=== PATIENT | male | born 1975 | race Caucasian/White ===

== ENCOUNTER 2016-07-16 19:58 | Inpatient (IN) | payer OTHER ==
[~2016-07-16] VITALS: Ht 162.6 cm; Wt 120.0 kg
[~2016-07-16 19:58] MED LIST: CARB200 PO; KLON2TAB PO; PRED20 PO
[2016-07-16 20:00] VITALS: BP 141/76; PULSE 107; RESP 16; TEMP 98.8; O2SAT 98
--- NOTE | 2016-07-16 20:31 | PD ---
Physical Exam Date Seen by Provider: Jul 16, 2016 Time Seen by Provider: 20:24 Narrative 40 YOWM C/O YEST R LOWER LEG PAIN AND REDNESS. POS BURNING SENSATION . USING HYDROCORTISONE. YEST HE FELT LIKE HE HAD THE FLU. NOT UTD. PMD ORTILANI. NO N/V /D, NO NUMBNESS OR TINGLING. VS REVIEWED. PT AWAITING BED PLACEMENT. Data Data Last Documented VS Vital Signs Date Time Temp Pulse Resp B/P Pulse Ox O2 Delivery O2 Flow Rate FiO2 07/16/16 20:00 98.8 107 16 141/[address] [facility] Medical Record Reviewed: Yes Supervised Visit with KAROLINA: Yes Sky Rodriguez Jul 16, 2016 20:31
[2016-07-16] MEDS ORDERED: KLON2TAB PO (20:42)
[2016-07-16] MEDS ORDERED: TEGR200T PO (20:42)
[2016-07-16 20:43] VITALS: BP 141/69; PULSE 110; RESP 18; O2SAT 95
[2016-07-16 20:44] VITALS: O2SAT 95
--- NOTE | 2016-07-16 20:51 | PD ---
HPI Chief Complaint: Skin Problem Time Seen by Provider: 20:38 Travel History International Travel<30 days: No Contact w/Intl Traveler<30days: No Traveled to known affect area: No History of Present Illness HPI The patient is a 40 year old male who presents to the [facility] emergency department with a history of febrile illness that began on Sunday evening. The patient reports that he had a subjective fever and chills. The patient denies having any associated cough, congestion, sore throat, vomiting, or diarrhea. He reports that through the week and he had have a diminished appetite, however he did drink some soup today. The patient reports that yesterday morning he noticed that he developed an area of redness along the right lower extremity. He reports that since then the area of redness has spread to the medial aspect of the right groin. He reports having tenderness at the site. He denies having any known injury. The patient reports that his past medical history is significant for a seizure disorder. He is followed by Dr. Harrison for this. The patient denies any headache, neck pain, chest pain, shortness of breath, abdominal pain, vomiting, diarrhea, urinary symptoms, or neurologic symptoms. PFSH Past Medical History Narrative Medical The patient's PMH is significant for a seizure disorder. Diminished Hearing: No Shingles: Yes Past Surgical History Narrative Surgical The patient's past surgical history is reportedly None. Surgical History: No Previous Surgery Social History Alcohol Use: No Tobacco Use: No Substance Use: No Allergies-Medications (Allergen,Severity, Reaction): Coded Allergies: Aspirin (Verified Allergy, Severe, 07/16/16) Reported Meds & Prescriptions Reported Meds & Active Scripts Active Reported Klonopin (Clonazepam) 2 Mg Tab 2 Mg PO TID Tegretol (Carbamazepine) 200 Mg Tab 200 Mg PO TID Review of Systems Except as stated in HPI: all other systems reviewed are Neg General / Constitutional: Positive: Fever, Chills Eyes: No: Visual changes HENT: No: Headaches Cardiovascular: No: Chest Pain or Discomfort Respiratory: No: Cough, Shortness of Breath Gastrointestinal: No: Nausea, Vomiting, Diarrhea, Abdominal Pain Genitourinary: No: Dysuria Musculoskeletal: Positive: Myalgias, Edema, Pain Skin: Positive Rash, Positive Change in Pigmentation Neurologic: No: Weakness Psychiatric: No: Depression Endocrine: No: Polydipsia Hematologic/Lymphatic: No: Easy Bruising Physical Exam Narrative General: The patient is well-developed well-nourished male in no acute distress. Head and Neck exam: Head is normocephalic atraumatic. Eyes: EOMI, pupils are equal round and reactive to light. Nose: Midline septum with pink mucous membranes Mouth: Dentition unremarkable. Moist mucus membranes. Posterior oropharynx is not erythematous. No tonsillar hypertrophy. Uvula midline. Airway patent. Neck: No palpable lymphadenopathy. No nuchal rigidity. No thyromegaly. Cardiovascular: Sinus tachycardia in the low 100s without murmurs, gallops, or rubs. No pulse deficit to the extremities on simultaneous auscultation and palpation of his radial artery. Lungs: Clear to auscultation bilaterally. No wheezes, rhonchi, or rales. Abdomen: Soft, without tenderness to palpation in all 4 quadrants of the abdomen. No guarding, rebound, or rigidity. Normal bowel sounds are audible. No tenderness on palpation of McBurney's point. Negative Thompson's sign. Extremities: No clubbing or cyanosis, however in the area of interest the right lower cavity the patient does have edema, warmth, tenderness on palpation overlying the skin over the right tibia and fibula. The patient has an area of redness that extends linearly of the medial aspect of the right thigh into the right groin. There is no lymphadenopathy palpated. 2+ pulses in all 4 extremities. The patient has less than 3 second capillary refill of the digits of that foot. Back: No spinous process tenderness to palpation. No costovertebral angle tenderness to palpation. Neurologic Exam: Grossly nonfocal. Data Data Last Documented VS Vital Signs Date Time Temp Pulse Resp B/P Pulse Ox O2 Delivery O2 Flow Rate FiO2 07/16/16 20:44 95 Room Air 07/16/16 20:43 110 18 141/69 07/16/16 20:00 98.8 Orders Electrocardiogram (07/16/16 20:39) Complete Blood Count With Diff (07/16/16 20:39) Comprehensive Metabolic Panel (07/16/16 20:39) Prothrombin Time / Inr (Pt) (07/16/16 20:39) Act Partial Throm Time (Ptt) (07/16/16 20:39) Blood Culture (07/16/16 20:39) C-Reactive Protein (Crp) (07/16/16 20:39) Magnesium (Mg) (07/16/16 20:39) Iv Access Insert/Monitor (07/16/16 20:39) Ecg Monitoring (07/16/16 20:39) Oximetry (07/16/16 20:39) Lactic Acid Sepsis Protocol (07/16/16 20:39) Us Leg Venous Doppler (07/16/16 20:39) Tibia/Fibula (Ap/Lat) (07/16/16 20:39) Carbamazepine (Tegretol) (07/16/16 20:51) Sodium Chlor 0.9% 1000 Ml Inj (Ns 1000 M (07/16/16 21:00) Piperacil-Tazo 3.375 Gm Premix (Zosyn 3. (07/16/16 21:00) Vancomycin Inj (Vancomycin Inj) (07/16/16 21:00) Sodium Chlor 0.9% 1000 Ml Inj (Ns 1000 M (07/16/16 22:30) Admit Order (Ed Use Only) (07/16/16 23:16) Labs Laboratory Tests Test 07/16/16 20:55 White Blood Count 12.1 TH/MM3 Red Blood Count 4.07 MIL/MM3 Hemoglobin 12.7 GM/DL Hematocrit 36.1 % Mean Corpuscular Volume 88.7 FL Mean Corpuscular Hemoglobin 31.2 PG Mean Corpuscular Hemoglobin 35.2 % Concent Red Cell Distribution Width 12.7 % Platelet Count 135 TH/MM3 Mean Platelet Volume 8.6 FL Neutrophils (%) (Auto) % Lymphocytes (%) (Auto) % Monocytes (%) (Auto) % Eosinophils (%) (Auto) % Basophils (%) (Auto) % Neutrophils # (Auto) TH/MM3 Lymphocytes # (Auto) TH/MM3 Monocytes # (Auto) TH/MM3 Eosinophils # (Auto) TH/MM3 Basophils # (Auto) TH/MM3 CBC Comment AUTO DIFF Differential Total Cells 100 Counted Neutrophils % (Manual) 66 % Band Neutrophils % 11 % Lymphocytes % 16 % Monocytes % 6 % Neutrophils # (Manual) 9.3 TH/MM3 Differential Comment FINAL DIFF MANUAL Blastocytes 1 % Platelet Estimate LOW Platelet Morphology Comment NORMAL Red Cell Morphology Comment NORMAL Prothrombin Time 11.4 SEC Prothromb Time International 1.0 RATIO Ratio Activated Partial 29.1 SEC Thromboplast Time Sodium Level 137 MEQ/L Potassium Level 3.7 MEQ/L Chloride Level 102 MEQ/L Carbon Dioxide Level 26.0 MEQ/L Anion Gap 9 MEQ/L Blood Urea Nitrogen 15 MG/DL Creatinine 0.95 MG/DL Estimat Glomerular Filtration 87 ML/MIN Rate Random Glucose 125 MG/DL Lactic Acid Level 2.3 mmol/L Calcium Level 8.5 MG/DL Magnesium Level 1.9 MG/DL Total Bilirubin 0.3 MG/DL Aspartate Amino Transf 19 U/L (AST/SGOT) Alanine Aminotransferase 21 U/L (ALT/SGPT) Alkaline Phosphatase 62 U/L C-Reactive Protein 17.00 MG/DL Total Protein 7.2 GM/DL Albumin 3.3 GM/DL Carbamazepine (Tegretol) Level 13.3 MCG/ML MDM Medical Decision Making Medical Screen Exam Complete: Yes Emergency Medical Condition: Yes Medical Record Reviewed: Yes Interpretation(s) Last Impressions Tibia/Fibula X-Ray 07/16/162038 Signed Impressions: Service Date/Time: Saturday, July 16, 2016 20:59 - CONCLUSION: Normal examination for a patient of this age. Sky Magaña MD Lower Extremity Ultrasound 07/16/162038 Signed Impressions: Service Date/Time: Saturday, July 16, 2016 21:10 - CONCLUSION: Normal examination. Sky Magaña MD Differential Diagnosis Cellulitis, versus lymphangitis, versus necrotizing fasciitis, versus DVT, versus sepsis Narrative Course During the course of the patients emergency department visit, the patients history, examination, and differential diagnosis were reviewed with the patient. The patient had IV access obtained and blood work sent for analysis. The patient was placed on a didactic instructor with oximetry and blood pressure monitoring. An x-ray of the right tib-fib was ordered, ultrasound of the right lower extremity was ordered. The patient had an EKG done on arrival. The patient's EKG shows a sinus rhythm, nonspecific T-wave abnormalities. Heart rate is 91, no acute ST segment elevation or depression is noted, T waves are flattened in lead 3 The patient was provided normal saline 1 L IV fluid bolus, Zosyn 3.375 g IV, vancomycin 1 g IV. The patients laboratory studies were reviewed and remarkable for white count of 12.1, hemoglobin 12.7, platelets 135 with 66 neutrophils, bands 11, lymphocytes 16, CMP is remarkable for a glucose of 125, C-reactive protein 17, initial lactate is 2.3 therefore the patient was given a second liter of normal saline IV fluids, PT PTT within normal limits, Tegretol level is elevated at 13.3, therefore the patient's Tegretol will be held. Radiology studies were reviewed and remarkable for tib-fib x-ray shows no acute abnormality. Right lower extremity ultrasound shows no evidence of DVT. The patients results were discussed with the patient, including the plan of care. I explained that further testing and/ or monitoring is indicated based on the patients history, examination, and/ or laboratory findings. Therefore, I recommended admission for additional evaluation. The patient expressed understanding and was agreeable with this plan. The patient was admitted to the hospital in stable condition and sent to a bed under the care of the [facility]. Sepsis Criteria SIRS Criteria (2 or more): Heart rate over 90, WBC > 58274, < 4000 or > 10% bands Sepsis Criteria (SIRS+source): Infect source susp/known Severe Sepsis (+one): Lactate >2 Criteria Outcome: Meets SIRS criteria, Meets sepsis criteria, Meets severe sepsis criteria Physician Communication Physician Communication The patient's case was discussed with Dr. Becerra who did agree to admit the patient to Dr. Lamb service. Diagnosis Primary Impression: Cellulitis of right leg Additional Impressions: Lymphangitis Sepsis Qualified Code: A41.9 - Sepsis, due to unspecified organism Admitting Information Admitting Physician Requests: Admit Carrie Madrigal MD Jul 16, 2016 20:51
[2016-07-16] MEDS ORDERED: VANCOMYCIN INJ 1,000 MG in SODIUM CHLOR 0.9% 250 ML INJ 250 ML IV ONE (21:00)
[2016-07-16] MEDS ORDERED: PIPERACIL-TAZO 3.375 GM PREMIX 50 ML IV ONE (21:00)
[2016-07-16] MEDS ORDERED: SODIUM CHLOR 0.9% 1000 ML INJ 1,000 ML IV ONE ×2 (21:00→22:30)
[2016-07-16 21:32] LABS: HEMATOCRIT 36.1 % (39.0-51.0); MEAN CELL VOLUME 88.7 FL (80.0-100.0); MEAN CORPUSCULAR HEMOGLOBIN 31.2 PG (27.0-34.0); MEAN CORPUSCULAR HGB CONC 35.2 % (32.0-36.0); PLATELET COUNT 135 TH/MM3 (150-450); RED BLOOD COUNT 4.07 MIL/MM3 (4.50-5.90); RED CELL DISTRIBUTION WIDTH 12.7 % (11.6-17.2); WHITE BLOOD COUNT 12.1 TH/MM3 (4.0-11.0)
[2016-07-16 21:34] LABS: HEMO FLAGS AUTO DIFF
--- NOTE | 2016-07-16 21:40 | RADRPT ---
EXAM DATE/TIME: 07/16/2016 20:59 [facility] COMPARISON: No previous studies available for comparison. INDICATIONS : Right leg swelling with redness MEDICAL HISTORY : None. SURGICAL HISTORY : None. ENCOUNTER: Initial ACUITY: 1 day PAIN SCORE: 0/10 LOCATION: Right Tibia FINDINGS: Two view examination of the right tibia demonstrates no evidence of fracture or dislocation. Bony mi neralization is normal. The soft tissue structures are intact. CONCLUSION: Normal examination for a patient of this age. Sky Magaña MD on July 16, 2016 at 21:38 Board Certified Radiologist. This report was verified electronically.
[2016-07-16 21:54] LABS: APTT (PATIENT) 29.1 SEC (24.3-30.1); PROTHROMBIN TIME - PATIENT 11.4 SEC (9.8-11.6)
--- NOTE | 2016-07-16 21:59 | RADRPT ---
EXAM DATE/TIME: 07/16/2016 21:10 [facility] COMPARISON: No previous studies available for comparison. INDICATIONS : Right leg redness and pain. MEDICAL HISTORY : Seizure. SURGICAL HISTORY : None. ENCOUNTER: Initial ACUITY: 1 day PAIN SCORE: 0/10 LOCATION: Right leg. TECHNIQUE: Venous ultrasound of the leg was performed from the inguinal ligament to the proximal calf. [employer]-grupo e, color Doppler and spectral tracing, compression and augmentation techniques were used. FINDINGS: There is normal compressibility of the deep venous system from the inguinal region to the proximal ca lf. No echogenic clot is seen in the lumen of the common femoral, femoral, popliteal, and posterior tibial veins. There is a normal response of the venous system to proximal and distal augmentation an d respiration. CONCLUSION: Normal examination. Sky Magaña MD on July 16, 2016 at 21:57 Board Certified Radiologist. This report was verified electronically.
[2016-07-16 22:40] LABS: BANDS 11 % (0-6); BLASTS 1 % (0-0); NEUTROPHIL # MANUAL DIFF 9.3 TH/MM3 (1.8-7.7); POLYS (SEG NEUTROPHILS) 66 % (16-70); WBC DIFF SAMPLE 100
[2016-07-16 22:42] LABS: PLATELET ESTIMATE SMEAR LOW (NORMAL); PLATELET MORPHOLOGY NORMAL (NORMAL)
[2016-07-16 22:43] LABS: SCAN/DIFF FINAL DIFF MANUAL
[2016-07-16 22:56] LABS: ALKALINE PHOSPHATASE 62 U/L (45-117); ALT (GPT) 21 U/L (12-78); ANION GAP 9 MEQ/L (5-15); AST (GOT) 19 U/L (15-37); BLOOD UREA NITROGEN 15 MG/DL (7-18); CHLORIDE 102 MEQ/L (98-107); GLOMERULAR FILTRATION RATE 87 ML/MIN (>89); MAGNESIUM 1.9 MG/DL (1.5-2.5); SODIUM (NA) 137 MEQ/L (136-145); TOTAL BILIRUBIN ADULT 0.3 MG/DL (0.2-1.0)
[2016-07-16 22:58] LABS: POTASSIUM 3.7 MEQ/L (3.5-5.1)
[2016-07-16 23:22] LABS: LACTIC ACID GHOST NOT REPORTABLE
[2016-07-16] MEDS ORDERED: ACETAMINOPHEN 325 MG TAB PO PRN (23:30)
[2016-07-16] MEDS ORDERED: Vancomycin Consult Pharmacy 1 EA OTHER SCH (23:30)
[2016-07-17] VITALS (8 sets, daily range): BP systolic 114–161; BP diastolic 56–91; PULSE 88–98; RESP 16–20; TEMP 96.5–99.9; O2SAT 93–99
[2016-07-17] MEDS: SODIUM CHLOR 0.9% 1000 ML INJ 1,000 ML IV SCH ×2 (01:28→16:50)
[2016-07-17] MEDS: PIPERACIL-TAZO 3.375 GM PREMIX 50 ML IV SCH ×4 (02:27→20:41)
[2016-07-17] MEDS: ACETAMINOPHEN 325 MG TAB PO PRN ×4 (03:23→20:40)
[2016-07-17] MEDS ORDERED: clonazePAM 1 MG TAB PO SCH (06:00)
[2016-07-17] MEDS: VANCOMYCIN INJ 1,500 MG in SODIUM CHLORID 0.9% 500 ML INJ 500 ML IV SCH ×2 (06:21→17:02)
[2016-07-17 07:19] LABS: BICARBONATE 21.1 MEQ/L (21.0-32.0)
[2016-07-17 07:57] LABS: AUTOMATED NEUTROPHIL # 7.7 TH/MM3 (1.8-7.7); BASOPHIL % 0.4 % (0.0-2.0); EOSINOPHIL # 0.1 TH/MM3 (0-0.4); EOSINOPHIL % 0.5 % (0.0-4.0); HEMATOCRIT 35.3 % (39.0-51.0); LYMPH % 16.2 % (9.0-44.0); LYMPHOCYTE # 1.7 TH/MM3 (1.0-4.8); MEAN CELL VOLUME 92.6 FL (80.0-100.0); MEAN CORPUSCULAR HEMOGLOBIN 31.2 PG (27.0-34.0); MEAN CORPUSCULAR HGB CONC 33.8 % (32.0-36.0); MONO % 9.8 % (0.0-8.0); NEUT % 73.1 % (16.0-70.0); PLATELET COUNT 113 TH/MM3 (150-450); RED BLOOD COUNT 3.82 MIL/MM3 (4.50-5.90); RED CELL DISTRIBUTION WIDTH 13.1 % (11.6-17.2); WHITE BLOOD COUNT 10.5 TH/MM3 (4.0-11.0)
[2016-07-17 08:35] LABS: HEMO FLAGS AUTO DIFF
[2016-07-17 08:38] LABS: BANDS 7 % (0-6); EOSINOPHILS 1 % (0-4); NEUTROPHIL # MANUAL DIFF 6.6 TH/MM3 (1.8-7.7); PLATELET ESTIMATE SMEAR LOW (NORMAL); PLATELET MORPHOLOGY NORMAL (NORMAL); POLYS (SEG NEUTROPHILS) 56 % (16-70); WBC DIFF SAMPLE 100
[2016-07-17 08:39] LABS: SCAN/DIFF FINAL DIFF MANUAL
[2016-07-17] MEDS ORDERED: carBAMazepine 200 MG TAB PO SCH (09:00)
[2016-07-17] MEDS ORDERED: TEGR200T PO (09:28)
--- NOTE | 2016-07-17 09:56 | HHI.HP ---
HPI Service [facility] Hospitalists Primary Care Physician Santiago Harrison M.D. Admission Diagnosis right leg cellulitis with lymphangitis Chief Complaint: RLE pain and redness Travel History International Travel<30 Days: No Contact w/Intl Traveler <30 Da: No Traveled to Known Affected Are: No History of Present Illness Mr. Landry is a 40 y/o male with seizure disorder who presented to the ED at [facility] with complaints of fevers and RLE erythema that began on the evening on 07/14. The patient reports that he has had subjective fever and chills and then noticed an area of redness along the right lower extremity which has spread to the medial aspect of the right groin. There is associated tenderness at the site. The patient denies having any associated cough, congestion, sore throat, vomiting, or diarrhea. He reports that through the week and he had have a diminished appetite. He denies having any known injury/trauma to the RLE. The patient denies any headache, neck pain, chest pain, shortness of breath, abdominal pain, vomiting, diarrhea, urinary symptoms, or neurologic symptoms. LE US was negative for DVT. Pt was given Vancomycin and Zosyn in the ED for cellulitis. Review of Systems Constitutional: COMPLAINS OF: Fever, Chills, Change in appetite Ears, nose, mouth, throat: DENIES: Hearing loss Respiratory: DENIES: Cough, Shortness of breath Cardiovascular: DENIES: Chest pain, Palpitations, Lower Extremity Edema Gastrointestinal: DENIES: Abdominal pain, Nausea, Vomiting Genitourinary: DENIES: Dysuria Musculoskeletal: DENIES: Back pain Integumentary: DENIES: Rash Hematologic/lymphatic: DENIES: Lymphadenopathy Neurologic: DENIES: Headache Psychiatric: DENIES: Confusion Past Family Social History Past Medical History Seizure disorder Past Surgical History None reported Reported Medications Klonopin (Clonazepam) 2 Mg Tab 2 Mg PO TID Tegretol (Carbamazepine) 200 Mg Tab 200 Mg PO TID Allergies: Coded Allergies: Aspirin (Verified Allergy, Severe, 07/16/16) Family History Noncontributory Social History Pt denies any alcohol, tobacco or illicit drug use Physical Exam Vital Signs Vital Signs Date Time Temp Pulse Resp B/P Pulse Ox O2 Delivery O2 Flow Rate FiO2 07/17/16 06:18 95 133/76 96 07/17/16 04:00 96.5 96 20 161/69 99 07/17/16 02:00 98.1 92 19 142/82 99 07/17/16 00:00 88 16 114/56 97 Room Air 07/16/16 20:44 95 Room Air 07/16/16 20:43 110 18 141/69 95 Room Air 07/16/16 20:00 98.8 107 16 141/76 98 Room Air Physical Exam GENERAL: This is a well-nourished, well-developed patient, in no apparent distress. SKIN: Erythema from the right ankle up the anterior right calf with streaking up the medial right thigh to the groin are, no lymphadenopathy noted. HEENT: Atraumatic. Normocephalic. No temporal or scalp tenderness. No scleral icterus. Airway patent. NECK: Trachea midline, supple, nontender. CARDIO: Regular. RESP: CTA bilaterally. No wheezes, rales, or rhonchi. ABD: +BS, soft, non-tender, nondistended. EXT: RLE edema and erythema NEURO: Awake and alert. Motor and sensory grossly within normal limits. Normal speech. Laboratory Laboratory Tests Test 07/16/16 07/16/16 07/17/16 20:55 23:45 06:13 White Blood Count 12.1 10.5 Red Blood Count 4.07 3.82 Hemoglobin 12.7 11.9 Hematocrit 36.1 35.3 Mean Corpuscular Volume 88.7 92.6 Mean Corpuscular Hemoglobin 31.2 31.2 Mean Corpuscular Hemoglobin 35.2 33.8 Concent Red Cell Distribution Width 12.7 13.1 Platelet Count 135 113 Mean Platelet Volume 8.6 8.7 Neutrophils (%) (Auto) 73.1 Lymphocytes (%) (Auto) 16.2 Monocytes (%) (Auto) 9.8 Eosinophils (%) (Auto) 0.5 Basophils (%) (Auto) 0.4 Neutrophils # (Auto) 7.7 Lymphocytes # (Auto) 1.7 Monocytes # (Auto) 1.0 Eosinophils # (Auto) 0.1 Basophils # (Auto) 0.0 CBC Comment AUTO DIFF AUTO DIFF Differential Total Cells 100 100 Counted Neutrophils % (Manual) 66 56 Band Neutrophils % 11 7 Lymphocytes % 16 29 Monocytes % 6 7 Neutrophils # (Manual) 9.3 6.6 Differential Comment FINAL DIFF FINAL DIFF MANUAL MANUAL Blastocytes 1 Platelet Estimate LOW LOW Platelet Morphology Comment NORMAL NORMAL Red Cell Morphology Comment NORMAL NORMAL Prothrombin Time 11.4 Prothromb Time International 1.0 Ratio Activated Partial 29.1 Thromboplast Time Sodium Level 137 140 Potassium Level 3.7 5.0 Chloride Level 102 108 Carbon Dioxide Level 26.0 21.1 Anion Gap 9 11 Blood Urea Nitrogen 15 11 Creatinine 0.95 0.71 Estimat Glomerular Filtration 87 122 Rate Random Glucose 125 101 Lactic Acid Level 2.3 0.8 Calcium Level 8.5 7.6 Magnesium Level 1.9 Total Bilirubin 0.3 Aspartate Amino Transf 19 (AST/SGOT) Alanine Aminotransferase 21 (ALT/SGPT) Alkaline Phosphatase 62 C-Reactive Protein 17.00 Total Protein 7.2 Albumin 3.3 Carbamazepine (Tegretol) Level 13.3 11.0 Eosinophils % 1 Hematology Comments Date/Time Procedure Status Source Growth 07/16/16 20:55 Aerobic Blood Culture Received Blood Peripheral Pending 07/16/16 20:55 Anaerobic Blood Culture Received Blood Peripheral Pending Result Diagram: 07/17/1613 07/17/16612 Imaging Last Impressions Tibia/Fibula X-Ray 07/16/162038 Signed Impressions: Service Date/Time: Saturday, July 16, 2016 20:59 - CONCLUSION: Normal examination for a patient of this age. Sky Magaña MD Lower Extremity Ultrasound 07/16/162038 Signed Impressions: Service Date/Time: Saturday, July 16, 2016 21:10 - CONCLUSION: Normal examination. Sky Magaña MD Septic Shock Reassessment Heart: Regular rate and rhythm Lungs: Clear Skin: Warm Assessment and Plan Problem List: (1) Cellulitis of right leg Status: Acute Plan: - Pt admitted with RLE cellulitis with noted lymphangitis/streaking x 4 days with subjective fevers and chills. - LE US was negative - Pt was started on Vancomycin and Zosyn in the ED and this was continued upon admission - Pt has been afebrile since admission. - CRP was 17.00 at admission. - Blood cultures drawn in the ED are pending. - Supportive care - DVT prophylaxis with Lovenox (2) Lymphangitis Status: Acute Plan: - See above. (3) Seizure disorder Status: Chronic Plan: - Pt takes Tegretol 200mg @ 0700 and 1300 and 400mg at 2200. - Pts Tegretol level was elevated at admission to 13.3 and the dose was changed to 200mg TID but the pt insisted that his dose be changed back he states that the last time his dose was changed he had a break through seizures which was in 1997. - Pt is also on Klonopin 2mg po TID @ 0700, 1300, 2200 which was resumed. Assessment and Plan Patient examined. Assessment and plan formulated with Beatriz Kemp PA-C. I agree with the above. Physician Certification 2 Midnight Certification Type: Admission for Inpatient Services Order for Inpatient Services The services are ordered in accordance with Medicare regulations or non- Medicare payer requirements, as applicable. In the case of services not specified as inpatient-only, they are appropriately provided as inpatient services in accordance with the 2-midnight benchmark. Estimated LOS (days): 3 3 days is the estimated time the patient will need to remain in the hospital, assuming treatment plan goals are met and no additional complications. Post-Hospital Plan: Not yet determined Beatriz Kemp Jul 17, 2016 09:56 Brayan Lamb DO Jul 22, 2016 13:33
[2016-07-17] MEDS ORDERED: ONDANSETRON HCL 4 MG/2 ML VIAL IV PRN (10:00)
[2016-07-17] MEDS: ENOXAPARIN SODIUM 40 MG/0.4 ML SYRINGE SQ SCH (12:30)
[2016-07-17] MEDS: clonazePAM 1 MG TAB PO SCH ×2 (12:30→20:39)
[2016-07-17] MEDS: carBAMazepine 200 MG TAB PO SCH ×2 (12:30→20:39)
--- NOTE | 2016-07-17 13:57 | EKG ---
Date Performed: 07/16/2016 Time Performed: 23:01:40 PTAGE: 40 years EKG: Sinus rhythm NONSPECIFIC T-WAVE ABNORMALITY BORDERLINE ECG NO PREVIOUS TRACING DOCTOR: Amy Hoffman Interpretating Date/Time 07/17/2016 13:56:16
[2016-07-17 16:48] LABS: HEMOGLOBIN A1b 0.9 %; HEMOGLOBIN Ao 85.6 %; HEMOGLOBIN LA1C 1.9 %; HEMOGLOBIN P3 5.3 %
[2016-07-18] VITALS: BP 121/64; PULSE 86; RESP 16; TEMP 98.7; O2SAT 97
[2016-07-18] MEDS: ACETAMINOPHEN 325 MG TAB PO PRN ×3 (02:28→19:55)
[2016-07-18] MEDS: PIPERACIL-TAZO 3.375 GM PREMIX 50 ML IV SCH ×4 (02:28→21:51)
[2016-07-18 04:00] VITALS: BP 124/77; PULSE 90; RESP 16; O2SAT 97
[2016-07-18] MEDS: SODIUM CHLOR 0.9% 1000 ML INJ 1,000 ML IV SCH ×2 (05:04→21:51)
[2016-07-18] MEDS: VANCOMYCIN INJ 1,500 MG in SODIUM CHLORID 0.9% 500 ML INJ 500 ML IV SCH ×2 (05:04→18:05)
[2016-07-18] MEDS: clonazePAM 1 MG TAB PO SCH ×3 (06:25→21:51)
[2016-07-18] MEDS: carBAMazepine 200 MG TAB PO SCH ×3 (06:26→21:50)
[2016-07-18 08:00] VITALS: BP 129/78; PULSE 88; RESP 20; TEMP 99; O2SAT 97
[2016-07-18] MEDS ORDERED: INFLUENZA VIRUS VACCINE (QUADRIVALENT) 0.5 ML SYR IM ONE (09:00)
--- NOTE | 2016-07-18 10:04 | HHI.PR ---
Subjective Remarks Pt without any new complaints. His leg is less swollen and the streaking has receded some from the thigh Afebrile Objective Vitals Vital Signs Date Time Temp Pulse Resp B/P Pulse Ox O2 Delivery O2 Flow Rate FiO2 07/18/16 08:00 99.0 88 20 129/78 97 07/18/16 04:00 90 16 124/77 97 07/18/16 00:00 98.7 86 16 121/64 97 07/17/16 20:00 98.5 95 16 123/75 98 07/17/16 18:02 16 07/17/16 16:48 99.9 95 16 128/72 97 07/17/16 12:00 98.9 95 20 150/88 98 07/17/16 07/17/16 07/18/16 14:59 22:59 06:59 Intake Total 720 ml 1794 ml 834 ml Balance 720 ml 1794 ml 834 ml Intake Oral 720 ml 240 ml IV Total 1794 ml 594 ml # Voids 6 1 # Bowel Movements 0 Result Diagram: 07/17/1613 07/17/16612 Other Results Laboratory Tests Test 07/16/16 07/16/16 07/17/16 20:55 23:45 06:13 White Blood Count 12.1 TH/MM3 10.5 TH/MM3 Red Blood Count 4.07 MIL/MM3 3.82 MIL/MM3 Hemoglobin 12.7 GM/DL 11.9 GM/DL Hematocrit 36.1 % 35.3 % Mean Corpuscular Volume 88.7 FL 92.6 FL Mean Corpuscular Hemoglobin 31.2 PG 31.2 PG Mean Corpuscular Hemoglobin 35.2 % 33.8 % Concent Red Cell Distribution Width 12.7 % 13.1 % Platelet Count 135 TH/MM3 113 TH/MM3 Mean Platelet Volume 8.6 FL 8.7 FL Neutrophils (%) (Auto) % 73.1 % Lymphocytes (%) (Auto) % 16.2 % Monocytes (%) (Auto) % 9.8 % Eosinophils (%) (Auto) % 0.5 % Basophils (%) (Auto) % 0.4 % Neutrophils # (Auto) TH/MM3 7.7 TH/MM3 Lymphocytes # (Auto) TH/MM3 1.7 TH/MM3 Monocytes # (Auto) TH/MM3 1.0 TH/MM3 Eosinophils # (Auto) TH/MM3 0.1 TH/MM3 Basophils # (Auto) TH/MM3 0.0 TH/MM3 CBC Comment AUTO DIFF AUTO DIFF Differential Total Cells 100 100 Counted Neutrophils % (Manual) 66 % 56 % Band Neutrophils % 11 % 7 % Lymphocytes % 16 % 29 % Monocytes % 6 % 7 % Neutrophils # (Manual) 9.3 TH/MM3 6.6 TH/MM3 Differential Comment FINAL DIFF FINAL DIFF MANUAL MANUAL Blastocytes 1 % Platelet Estimate LOW LOW Platelet Morphology Comment NORMAL NORMAL Red Cell Morphology Comment NORMAL NORMAL Prothrombin Time 11.4 SEC Prothromb Time International 1.0 RATIO Ratio Activated Partial 29.1 SEC Thromboplast Time Sodium Level 137 MEQ/L 140 MEQ/L Potassium Level 3.7 MEQ/L 5.0 MEQ/L Chloride Level 102 MEQ/L 108 MEQ/L Carbon Dioxide Level 26.0 MEQ/L 21.1 MEQ/L Anion Gap 9 MEQ/L 11 MEQ/L Blood Urea Nitrogen 15 MG/DL 11 MG/DL Creatinine 0.95 MG/DL 0.71 MG/DL Estimat Glomerular Filtration 87 ML/MIN 122 ML/MIN Rate Random Glucose 125 MG/DL 101 MG/DL Lactic Acid Level 2.3 mmol/L 0.8 mmol/L Calcium Level 8.5 MG/DL 7.6 MG/DL Magnesium Level 1.9 MG/DL Total Bilirubin 0.3 MG/DL Aspartate Amino Transf 19 U/L (AST/SGOT) Alanine Aminotransferase 21 U/L (ALT/SGPT) Alkaline Phosphatase 62 U/L C-Reactive Protein 17.00 MG/DL Total Protein 7.2 GM/DL Albumin 3.3 GM/DL Carbamazepine (Tegretol) Level 13.3 MCG/ML 11.0 MCG/ML Eosinophils % 1 % Hematology Comments Hemoglobin A1c 5.4 % Imaging Last Impressions Tibia/Fibula X-Ray 07/16/162038 Signed Impressions: Service Date/Time: Saturday, July 16, 2016 20:59 - CONCLUSION: Normal examination for a patient of this age. Sky Magaña MD Lower Extremity Ultrasound 07/16/162038 Signed Impressions: Service Date/Time: Saturday, July 16, 2016 21:10 - CONCLUSION: Normal examination. Sky Magaña MD Objective Remarks General: NAD, AAOx3 Skin: Erythema from the right ankle up the anterior right calf. Less streaking up the medial right thigh, no lymphadenopathy noted. Cardiac: Regular. Chest: CTA bilaterally. Abd: +BS, soft, non-tender, nondistended. Ext: RLE edema and erythema A/P Problem List: (1) Cellulitis of right leg Status: Acute Plan: - Pt admitted with RLE cellulitis with noted lymphangitis/streaking x 4 days with subjective fevers and chills. - LE US was negative - Cont. Vancomycin and Zosyn - Pt has been afebrile since admission. - CRP was 17.00 at admission. - Blood cultures with no growth to date - Supportive care - DVT prophylaxis with Lovenox (2) Lymphangitis Status: Acute Plan: - See above. (3) Seizure disorder Status: Chronic Plan: - Pt takes Tegretol 200mg @ 0700 and 1300 and 400mg at 2200. - Pts Tegretol level was elevated at admission to 13.3 and the dose was changed to 200mg TID but the pt insisted that his dose be changed back he states that the last time his dose was changed he had a break through seizures which was in 1997. - Pt is also on Klonopin 2mg po TID @ 0700, 1300, 2200 which was resumed. Beatriz Kemp Jul 18, 2016 10:04 Brayan Lamb DO Jul 22, 2016 13:34
[2016-07-18 11:09] LABS: AUTOMATED NEUTROPHIL # 7.2 TH/MM3 (1.8-7.7); BASOPHIL % 0.2 % (0.0-2.0); EOSINOPHIL # 0.1 TH/MM3 (0-0.4); EOSINOPHIL % 0.6 % (0.0-4.0); HEMATOCRIT 34.6 % (39.0-51.0); HEMO FLAGS DIFF FINAL; LYMPH % 15.5 % (9.0-44.0); LYMPHOCYTE # 1.5 TH/MM3 (1.0-4.8); MEAN CELL VOLUME 90.6 FL (80.0-100.0); MEAN CORPUSCULAR HEMOGLOBIN 30.7 PG (27.0-34.0); MEAN CORPUSCULAR HGB CONC 33.9 % (32.0-36.0); MONO % 6.7 % (0.0-8.0); PLATELET COUNT 160 TH/MM3 (150-450); RED BLOOD COUNT 3.81 MIL/MM3 (4.50-5.90); RED CELL DISTRIBUTION WIDTH 12.8 % (11.6-17.2); WHITE BLOOD COUNT 9.4 TH/MM3 (4.0-11.0)
[2016-07-18 11:36] LABS: BICARBONATE 25.7 MEQ/L (21.0-32.0); MAGNESIUM 1.9 MG/DL (1.5-2.5); POTASSIUM 3.4 MEQ/L (3.5-5.1)
[2016-07-18 12:00] VITALS: BP 124/75; PULSE 95; RESP 20; TEMP 98.7; O2SAT 97
[2016-07-18] MEDS: ENOXAPARIN SODIUM 40 MG/0.4 ML SYRINGE SQ SCH (12:49)
[2016-07-18 16:00] VITALS: BP 135/78; PULSE 90; RESP 20; TEMP 99.3; O2SAT 97
[2016-07-18] MEDS ORDERED: PHARMACY ORDERED LAB ONE (17:45)
[2016-07-18 20:00] VITALS: BP 139/78; PULSE 98; RESP 18; TEMP 99.1; O2SAT 97
[2016-07-18] MEDS: traMADol HCL 50 MG TAB PO PRN (22:57)
[2016-07-19] VITALS: BP 128/72; PULSE 94; RESP 18; TEMP 99.8; O2SAT 95
[2016-07-19] MEDS: SODIUM CHLOR 0.9% 1000 ML INJ 1,000 ML IV SCH ×2 (02:15→12:21)
[2016-07-19] MEDS: PIPERACIL-TAZO 3.375 GM PREMIX 50 ML IV SCH ×4 (03:13→22:06)
[2016-07-19 04:00] VITALS: BP 111/64; PULSE 86; RESP 16; TEMP 97.5; O2SAT 94
[2016-07-19] MEDS: clonazePAM 1 MG TAB PO SCH ×3 (06:12→22:06)
[2016-07-19] MEDS: VANCOMYCIN INJ 1,500 MG in SODIUM CHLORID 0.9% 500 ML INJ 500 ML IV SCH (06:12)
[2016-07-19] MEDS: carBAMazepine 200 MG TAB PO SCH ×3 (06:12→22:05)
[2016-07-19 07:42] LABS: AUTOMATED NEUTROPHIL # 4.7 TH/MM3 (1.8-7.7); BASOPHIL # 0.1 TH/MM3 (0-0.2); BASOPHIL % 0.7 % (0.0-2.0); EOSINOPHIL # 0.2 TH/MM3 (0-0.4); EOSINOPHIL % 2.1 % (0.0-4.0); HEMATOCRIT 32.9 % (39.0-51.0); HEMO FLAGS DIFF FINAL; LYMPHOCYTE # 1.9 TH/MM3 (1.0-4.8); MEAN CELL VOLUME 88.9 FL (80.0-100.0); MEAN CORPUSCULAR HEMOGLOBIN 30.6 PG (27.0-34.0); MEAN CORPUSCULAR HGB CONC 34.4 % (32.0-36.0); NEUT % 63.2 % (16.0-70.0); PLATELET COUNT 145 TH/MM3 (150-450); RED CELL DISTRIBUTION WIDTH 12.5 % (11.6-17.2); WHITE BLOOD COUNT 7.5 TH/MM3 (4.0-11.0)
[2016-07-19 07:50] VITALS: BP 141/75; PULSE 87; RESP 20; TEMP 97.9; O2SAT 94
[2016-07-19 08:16] LABS: BICARBONATE 29.5 MEQ/L (21.0-32.0); POTASSIUM 3.5 MEQ/L (3.5-5.1)
[2016-07-19] MEDS: traMADol HCL 50 MG TAB PO PRN ×2 (08:16→14:24)
--- NOTE | 2016-07-19 09:02 | HHI.PR ---
Subjective Remarks Pt without any new complaints. Denies any increased pain and pt is keeping the RLE elevated Objective Vitals Vital Signs Date Time Temp Pulse Resp B/P Pulse Ox O2 Delivery O2 Flow Rate FiO2 07/19/16 04:00 97.5 86 16 111/64 94 07/19/16 00:00 99.8 94 18 128/72 95 07/18/16 20:00 99.1 98 18 139/78 97 07/18/16 16:00 99.3 90 20 135/78 97 07/18/16 12:00 98.7 95 20 124/75 97 07/18/16 07/18/16 07/19/16 15:00 23:00 07:00 Intake Total 720 ml 1330 ml 1730 ml Balance 720 ml 1330 ml 1730 ml Intake Oral 720 ml 600 ml IV Total 730 ml 1730 ml # Voids 6 2 1 # Bowel Movements 1 Result Diagram: 07/19/16 0710 07/19/16 0710 Other Results Laboratory Tests Test 07/18/16 07/18/16 07/19/16 11:00 17:15 07:10 White Blood Count 9.4 TH/MM3 7.5 TH/MM3 Red Blood Count 3.81 MIL/MM3 3.70 MIL/MM3 Hemoglobin 11.7 GM/DL 11.3 GM/DL Hematocrit 34.6 % 32.9 % Mean Corpuscular Volume 90.6 FL 88.9 FL Mean Corpuscular Hemoglobin 30.7 PG 30.6 PG Mean Corpuscular Hemoglobin 33.9 % 34.4 % Concent Red Cell Distribution Width 12.8 % 12.5 % Platelet Count 160 TH/MM3 145 TH/MM3 Mean Platelet Volume 9.1 FL 8.3 FL Neutrophils (%) (Auto) 77.0 % 63.2 % Lymphocytes (%) (Auto) 15.5 % 25.0 % Monocytes (%) (Auto) 6.7 % 9.0 % Eosinophils (%) (Auto) 0.6 % 2.1 % Basophils (%) (Auto) 0.2 % 0.7 % Neutrophils # (Auto) 7.2 TH/MM3 4.7 TH/MM3 Lymphocytes # (Auto) 1.5 TH/MM3 1.9 TH/MM3 Monocytes # (Auto) 0.6 TH/MM3 0.7 TH/MM3 Eosinophils # (Auto) 0.1 TH/MM3 0.2 TH/MM3 Basophils # (Auto) 0.0 TH/MM3 0.1 TH/MM3 CBC Comment DIFF FINAL DIFF FINAL Differential Comment Sodium Level 138 MEQ/L 140 MEQ/L Potassium Level 3.4 MEQ/L 3.5 MEQ/L Chloride Level 104 MEQ/L 103 MEQ/L Carbon Dioxide Level 25.7 MEQ/L 29.5 MEQ/L Anion Gap 8 MEQ/L 8 MEQ/L Blood Urea Nitrogen 7 MG/DL 9 MG/DL Creatinine 0.76 MG/DL 0.77 MG/DL Estimat Glomerular Filtration 113 ML/MIN 111 ML/MIN Rate Random Glucose 183 MG/DL 108 MG/DL Calcium Level 8.4 MG/DL 8.5 MG/DL Magnesium Level 1.9 MG/DL 2.0 MG/DL Vancomycin Level Trough 7.3 MCG/ML Imaging Last Impressions Tibia/Fibula X-Ray 07/16/162038 Signed Impressions: Service Date/Time: Saturday, July 16, 2016 20:59 - CONCLUSION: Normal examination for a patient of this age. Sky Magaña MD Lower Extremity Ultrasound 07/16/162038 Signed Impressions: Service Date/Time: Saturday, July 16, 2016 21:10 - CONCLUSION: Normal examination. Sky Magaña MD Objective Remarks General: NAD, AAOx3 Skin: Less erythema from the right ankle up the anterior right calf. No streaking to the medial right thigh noted, no lymphadenopathy noted. Cardiac: Regular. Chest: CTA bilaterally. Abd: +BS, soft, non-tender, nondistended. Ext: RLE edema and erythema A/P Problem List: (1) Cellulitis of right leg Status: Acute Plan: - Pt admitted with RLE cellulitis with noted lymphangitis/streaking x 4 days with subjective fevers and chills. - This is improving - LE US was negative - Cont. Vancomycin and Zosyn - Pt has been afebrile since admission. - CRP was 17.00 at admission. - Blood cultures with no growth to date - Supportive care - DVT prophylaxis with Lovenox (2) Lymphangitis Status: Acute Plan: - See above. (3) Seizure disorder Status: Chronic Plan: - Pt takes Tegretol 200mg @ 0700 and 1300 and 400mg at 2200. - Pts Tegretol level was elevated at admission to 13.3 and the dose was changed to 200mg TID but the pt insisted that his dose be changed back he states that the last time his dose was changed he had a break through seizures which was in 1997. - Pt is also on Klonopin 2mg po TID @ 0700, 1300, 2200 which was resumed. Beatriz Kemp Jul 19, 2016 09:02 Brayan Lamb DO Jul 22, 2016 13:34
[2016-07-19 11:50] VITALS: BP 157/84; PULSE 86; RESP 20; TEMP 98.3; O2SAT 95
[2016-07-19] MEDS: ENOXAPARIN SODIUM 40 MG/0.4 ML SYRINGE SQ SCH (12:16)
[2016-07-19 15:50] VITALS: BP 128/72; PULSE 93; RESP 20; TEMP 98.7; O2SAT 96
[2016-07-19] MEDS: VANCOMYCIN INJ 2,250 MG in SODIUM CHLORID 0.9% 500 ML INJ 500 ML IV SCH (17:25)
[2016-07-19 20:00] VITALS: BP 145/94; PULSE 83; RESP 18; TEMP 98.9; O2SAT 95
[2016-07-20] VITALS (7 sets, daily range): BP systolic 124–166; BP diastolic 75–92; PULSE 72–85; RESP 18–20; TEMP 96.3–99.1; O2SAT 95–98
[2016-07-20] MEDS: ACETAMINOPHEN 325 MG TAB PO PRN (00:13)
[2016-07-20] MEDS: PIPERACIL-TAZO 3.375 GM PREMIX 50 ML IV SCH ×4 (04:02→22:16)
[2016-07-20] MEDS: clonazePAM 1 MG TAB PO SCH ×3 (06:26→22:16)
[2016-07-20] MEDS: VANCOMYCIN INJ 2,250 MG in SODIUM CHLORID 0.9% 500 ML INJ 500 ML IV SCH ×2 (06:26→19:16)
[2016-07-20] MEDS: carBAMazepine 200 MG TAB PO SCH ×3 (06:26→22:15)
[2016-07-20] MEDS: SODIUM CHLOR 0.9% 1000 ML INJ 1,000 ML IV SCH ×2 (07:30→22:16)
[2016-07-20] MEDS: traMADol HCL 50 MG TAB PO PRN ×2 (09:50→19:17)
--- NOTE | 2016-07-20 10:20 | HHI.PR ---
Subjective Remarks Pt cellulitis is slightly improved Objective Vitals Vital Signs Date Time Temp Pulse Resp B/P Pulse Ox O2 Delivery O2 Flow Rate FiO2 07/20/16 08:50 97.2 72 20 135/89 98 07/20/16 04:00 97.2 75 18 150/88 95 07/20/16 00:00 99.1 85 18 166/92 95 07/19/16 20:00 98.9 83 18 145/94 95 07/19/16 15:50 98.7 93 20 128/72 96 07/19/16 11:50 98.3 86 20 157/84 95 07/19/16 07/19/16 07/20/16 15:00 23:00 07:00 Intake Total 2335 ml 1762 ml Balance 2335 ml 1762 ml Intake Oral 1301 ml IV Total 1034 ml 1762 ml # Voids 6 3 # Bowel Movements 0 Result Diagram: 07/19/16 0710 07/19/16 0710 Other Results Laboratory Tests Test 07/18/16 07/18/16 07/19/16 11:00 17:15 07:10 White Blood Count 9.4 TH/MM3 7.5 TH/MM3 Red Blood Count 3.81 MIL/MM3 3.70 MIL/MM3 Hemoglobin 11.7 GM/DL 11.3 GM/DL Hematocrit 34.6 % 32.9 % Mean Corpuscular Volume 90.6 FL 88.9 FL Mean Corpuscular Hemoglobin 30.7 PG 30.6 PG Mean Corpuscular Hemoglobin 33.9 % 34.4 % Concent Red Cell Distribution Width 12.8 % 12.5 % Platelet Count 160 TH/MM3 145 TH/MM3 Mean Platelet Volume 9.1 FL 8.3 FL Neutrophils (%) (Auto) 77.0 % 63.2 % Lymphocytes (%) (Auto) 15.5 % 25.0 % Monocytes (%) (Auto) 6.7 % 9.0 % Eosinophils (%) (Auto) 0.6 % 2.1 % Basophils (%) (Auto) 0.2 % 0.7 % Neutrophils # (Auto) 7.2 TH/MM3 4.7 TH/MM3 Lymphocytes # (Auto) 1.5 TH/MM3 1.9 TH/MM3 Monocytes # (Auto) 0.6 TH/MM3 0.7 TH/MM3 Eosinophils # (Auto) 0.1 TH/MM3 0.2 TH/MM3 Basophils # (Auto) 0.0 TH/MM3 0.1 TH/MM3 CBC Comment DIFF FINAL DIFF FINAL Differential Comment Sodium Level 138 MEQ/L 140 MEQ/L Potassium Level 3.4 MEQ/L 3.5 MEQ/L Chloride Level 104 MEQ/L 103 MEQ/L Carbon Dioxide Level 25.7 MEQ/L 29.5 MEQ/L Anion Gap 8 MEQ/L 8 MEQ/L Blood Urea Nitrogen 7 MG/DL 9 MG/DL Creatinine 0.76 MG/DL 0.77 MG/DL Estimat Glomerular Filtration 113 ML/MIN 111 ML/MIN Rate Random Glucose 183 MG/DL 108 MG/DL Calcium Level 8.4 MG/DL 8.5 MG/DL Magnesium Level 1.9 MG/DL 2.0 MG/DL Vancomycin Level Trough 7.3 MCG/ML Imaging Last Impressions Tibia/Fibula X-Ray 07/16/162038 Signed Impressions: Service Date/Time: Saturday, July 16, 2016 20:59 - CONCLUSION: Normal examination for a patient of this age. Sky Magaña MD Lower Extremity Ultrasound 07/16/162038 Signed Impressions: Service Date/Time: Saturday, July 16, 2016 21:10 - CONCLUSION: Normal examination. Sky Magaña MD Objective Remarks General: NAD, AAOx3 Skin: Less erythema from the right ankle up the anterior right calf. No streaking to the medial right thigh noted, no lymphadenopathy noted. Cardiac: Regular. Chest: CTA bilaterally. Abd: +BS, soft, non-tender, nondistended. Ext: RLE edema and erythema A/P Problem List: (1) Cellulitis of right leg Status: Acute Plan: - Pt admitted with RLE cellulitis with noted lymphangitis/streaking x 4 days with subjective fevers and chills. - This is improving - LE US was negative - Cont. Vancomycin and Zosyn - Pt has been afebrile since admission. - CRP was 17.00 at admission. - Blood cultures with no growth to date - Supportive care - DVT prophylaxis with Lovenox (2) Lymphangitis Status: Acute Plan: - See above. (3) Seizure disorder Status: Chronic Plan: - Pt takes Tegretol 200mg @ 0700 and 1300 and 400mg at 2200. - Pts Tegretol level was elevated at admission to 13.3 and the dose was changed to 200mg TID but the pt insisted that his dose be changed back he states that the last time his dose was changed he had a break through seizures which was in 1997. - Pt is also on Klonopin 2mg po TID @ 0700, 1300, 2200 which was resumed. Beatriz Kemp Jul 20, 2016 10:20 Brayan Lamb DO Jul 22, 2016 13:35
[2016-07-20] MEDS: ENOXAPARIN SODIUM 40 MG/0.4 ML SYRINGE SQ SCH (12:55)
--- NOTE | 2016-07-20 19:12 | RADRPT ---
EXAM DATE/TIME: 07/20/2016 18:51 [facility] COMPARISON: No previous studies available for comparison. INDICATIONS : Right arm PICC placement. MEDICAL HISTORY : seizures SURGICAL HISTORY : None. ENCOUNTER: Initial ACUITY: 1 day PAIN SCORE: 0/10 LOCATION: Right arm picc FINDINGS: Right arm PICC line is present good position with tip overlying SVC. The lungs are clear. No pleural effusion is identified. The cardiomediastinal contours are satisfactory for technique and projection. CONCLUSION: Satisfactory PICC line positioning Santiago Wyatt MD on July 20, 2016 at 19:10 Board Certified Radiologist. This report was verified electronically.
[2016-07-20] MEDS ORDERED: SODIUM CHLORIDE 0.9% FLUSH 10 ML FLUSH IV FLUSH PRN (19:15)
[2016-07-20] MEDS ORDERED: traMADol HCL 50 MG TAB PO SCH (22:45)
[2016-07-21] VITALS: BP 134/84; PULSE 82; RESP 18; TEMP 98.8; O2SAT 97
[2016-07-21] MEDS: PIPERACIL-TAZO 3.375 GM PREMIX 50 ML IV SCH ×4 (03:05→22:38)
[2016-07-21 04:00] VITALS: BP 121/77; PULSE 83; RESP 18; TEMP 97.6; O2SAT 94
[2016-07-21] MEDS: SODIUM CHLOR 0.9% 1000 ML INJ 1,000 ML IV SCH ×2 (04:00→13:47)
[2016-07-21] MEDS: traMADol HCL 50 MG TAB PO PRN ×3 (05:45→22:39)
[2016-07-21] MEDS ORDERED: PHARMACY ORDERED LAB ONE ×2 (05:45→17:45)
[2016-07-21] MEDS: VANCOMYCIN INJ 2,250 MG in SODIUM CHLORID 0.9% 500 ML INJ 500 ML IV SCH ×2 (05:46→17:52)
[2016-07-21] MEDS: carBAMazepine 200 MG TAB PO SCH ×3 (05:50→22:38)
[2016-07-21] MEDS: clonazePAM 1 MG TAB PO SCH ×3 (05:51→22:38)
[2016-07-21 08:41] VITALS: BP 119/71; PULSE 79; RESP 20; TEMP 96.9; O2SAT 96
[2016-07-21] MEDS: SODIUM CHLORIDE 0.9% FLUSH 10 ML FLUSH IV FLUSH SCH (08:43)
[2016-07-21 12:00] VITALS: BP 125/81; PULSE 74; RESP 18; TEMP 97; O2SAT 98
[2016-07-21] MEDS: ENOXAPARIN SODIUM 40 MG/0.4 ML SYRINGE SQ SCH (13:47)
[2016-07-21 16:00] VITALS: BP 127/77; PULSE 88; RESP 18; TEMP 97.3; O2SAT 99
--- NOTE | 2016-07-21 16:10 | HHI.PR ---
Subjective Remarks RLE is improved from admission, but NO improvement in the last 2 days. Objective Vitals Vital Signs Date Time Temp Pulse Resp B/P Pulse Ox O2 Delivery O2 Flow Rate FiO2 07/21/16 12:00 97.0 74 18 125/81 98 07/21/16 08:41 96.9 79 20 119/71 96 07/21/16 04:00 97.6 83 18 121/77 94 07/21/16 00:00 98.8 82 18 134/84 97 07/20/16 22:15 81 124/75 98 07/20/16 20:00 96.3 83 18 145/89 98 07/20/16 07/20/16 07/21/16 15:00 23:00 07:00 Intake Total 2193 ml 1200 ml Balance 2193 ml 1200 ml Intake Oral 1181 ml IV Total 1012 ml 1200 ml # Voids 9 # Bowel Movements 0 Result Diagram: 07/19/16 0710 07/21/16 0551 Imaging Last Impressions Tibia/Fibula X-Ray 07/16/162038 Signed Impressions: Service Date/Time: Saturday, July 16, 2016 20:59 - CONCLUSION: Normal examination for a patient of this age. Sky Magaña MD Lower Extremity Ultrasound 07/16/162038 Signed Impressions: Service Date/Time: Saturday, July 16, 2016 21:10 - CONCLUSION: Normal examination. Sky Magaña MD Objective Remarks General: NAD, AAOx3 Skin: Less erythema from the right ankle up the anterior right calf. No streaking to the medial right thigh noted, no lymphadenopathy noted. Cardiac: Regular. Chest: CTA bilaterally. Abd: +BS, soft, non-tender, nondistended. Ext: RLE edema and erythema A/P Problem List: (1) Cellulitis of right leg Status: Acute Plan: - Pt admitted with RLE cellulitis with noted lymphangitis/streaking x 4 days with subjective fevers and chills. - This is improving - LE US was negative - Cont. Vancomycin and Zosyn - Pt has been afebrile since admission. - CRP was 17.00 at admission. - Blood cultures with no growth to date - Supportive care - would like to d/c to home, consider PO zyvox 500mg BID - pt had initial improvement, but NOT in the last few days - consult Infectious disease - anticipate d/c to home in next 1-2 days. - DVT prophylaxis with Lovenox (2) Lymphangitis Status: Acute Plan: - See above. (3) Seizure disorder Status: Chronic Plan: - Pt takes Tegretol 200mg @ 0700 and 1300 and 400mg at 2200. - Pts Tegretol level was elevated at admission to 13.3 and the dose was changed to 200mg TID but the pt insisted that his dose be changed back he states that the last time his dose was changed he had a break through seizures which was in 1997. - Pt is also on Klonopin 2mg po TID @ 0700, 1300, 2200 which was resumed. Brayan Lamb DO Jul 21, 2016 16:10
[2016-07-21 20:00] VITALS: BP 138/86; PULSE 78; RESP 17; TEMP 98.8; O2SAT 96
[2016-07-22] VITALS: BP 108/79; PULSE 81; RESP 18; TEMP 96.8; O2SAT 96
[2016-07-22] MEDS: PIPERACIL-TAZO 3.375 GM PREMIX 50 ML IV SCH ×2 (03:09→11:05)
[2016-07-22] MEDS: SODIUM CHLOR 0.9% 1000 ML INJ 1,000 ML IV SCH ×3 (03:09→18:14)
[2016-07-22 04:00] VITALS: BP 117/80; PULSE 64; RESP 17; TEMP 96.9; O2SAT 97
[2016-07-22] MEDS: VANCOMYCIN INJ 2,250 MG in SODIUM CHLORID 0.9% 500 ML INJ 500 ML IV SCH (06:16)
[2016-07-22] MEDS: clonazePAM 1 MG TAB PO SCH ×3 (06:16→21:57)
[2016-07-22] MEDS: carBAMazepine 200 MG TAB PO SCH ×3 (06:16→22:00)
[2016-07-22 08:00] VITALS: BP 140/81; PULSE 76; RESP 18; TEMP 97.2; O2SAT 98
[2016-07-22] MEDS: SODIUM CHLORIDE 0.9% FLUSH 10 ML FLUSH IV FLUSH SCH (11:06)
[2016-07-22] MEDS: ENOXAPARIN SODIUM 40 MG/0.4 ML SYRINGE SQ SCH (11:11)
[2016-07-22 12:00] VITALS: BP 135/79; PULSE 68; RESP 18; TEMP 97.1; O2SAT 96
--- NOTE | 2016-07-22 13:36 | HHI.PR ---
Subjective Remarks No new complaints. Objective Vitals Vital Signs Date Time Temp Pulse Resp B/P Pulse Ox O2 Delivery O2 Flow Rate FiO2 07/22/16 12:00 97.1 68 18 135/79 96 07/22/16 08:00 97.2 76 18 140/81 98 07/22/16 04:00 96.9 64 17 117/80 97 07/22/16 00:00 96.8 81 18 108/79 96 07/21/16 20:00 98.8 78 17 138/86 96 07/21/16 16:00 97.3 88 18 127/77 99 07/21/16 07/21/16 07/22/16 15:00 23:00 07:00 Intake Total 480 ml 1285 ml Balance 480 ml 1285 ml Intake Oral 480 ml 240 ml IV Total 1045 ml # Voids 1 1 # Bowel Movements 0 0 Result Diagram: 07/19/16 0710 07/21/16 0551 Imaging Last Impressions Tibia/Fibula X-Ray 07/16/162038 Signed Impressions: Service Date/Time: Saturday, July 16, 2016 20:59 - CONCLUSION: Normal examination for a patient of this age. Sky Magaña MD Lower Extremity Ultrasound 07/16/162038 Signed Impressions: Service Date/Time: Saturday, July 16, 2016 21:10 - CONCLUSION: Normal examination. Sky Magaña MD Objective Remarks General: NAD, AAOx3 Skin: Less erythema from the right ankle up the anterior right calf. No streaking to the medial right thigh noted, no lymphadenopathy noted. Cardiac: Regular. Chest: CTA bilaterally. Abd: +BS, soft, non-tender, nondistended. Ext: RLE edema and erythema A/P Problem List: (1) Cellulitis of right leg Status: Acute Plan: - Pt admitted with RLE cellulitis with noted lymphangitis/streaking x 4 days with subjective fevers and chills. - This is improving - LE US was negative - Cont. Vancomycin and Zosyn - Pt has been afebrile since admission. - CRP was 17.00 at admission. - Blood cultures with no growth to date - Supportive care - would like to d/c to home [place], consider PO zyvox 500mg BID - pt had initial improvement, but NOT in the last few days - await ID consult, Dr. Yusuf to see pt later this afternoon - anticipate d/c to home in next 1-2 days. - DVT prophylaxis with Lovenox (2) Lymphangitis Status: Acute Plan: - See above. (3) Seizure disorder Status: Chronic Plan: - Pt takes Tegretol 200mg @ 0700 and 1300 and 400mg at 2200. - Pts Tegretol level was elevated at admission to 13.3 and the dose was changed to 200mg TID but the pt insisted that his dose be changed back he states that the last time his dose was changed he had a break through seizures which was in 1997. - Pt is also on Klonopin 2mg po TID @ 0700, 1300, 2200 which was resumed. Brayan Lamb DO Jul 22, 2016 13:36
--- NOTE | 2016-07-22 15:42 | MB ---
cc: ANTONIA LAMB FRANKLYN F. MD DATE OF CONSULTATION: 07/22/[address] Lamb REASON FOR CONSULTATION Right lower extremity cellulitis. Slow to heal with antibiotic treatment. HISTORY OF PRESENT ILLNESS This is a 40-year-old white male who presented to the emergency department with chills and flu-like illness. The patient also noted redness of his leg on the right side. He believed that the redness was apparent after he started getting the symptoms with chills. He describes to me shaking chills and feeling hot and cold. He also noted subjective fever at home. He denies any trauma to his right leg. He was admitted and started on antibiotics. The patient showed me a picture of his right lower extremity when he was just admitted to the hospital and at the time the area of the tibia below the knee was beefy red circumferentially. He had elevated heart rate and his white blood cell count was greater than 12,000 and he also had elevated lactic acid. The lactic acid was 2.3 on admission. Blood cultures were taken on admission and have no growth. The patient was admitted to the hospital on 07/16. He was put on antibiotics. The redness of the leg has receded. However, he continues to have some degree of redness and there is a blister at the posterior aspect of the distal right tibia. This consultation is requested for recommendation for antibiotic treatment. The patient's white blood cell count has improved. He still has swelling of the right leg and it obviously appears larger than the left. PAST MEDICAL HISTORY Seizure disorder. The patient denies other past history. ALLERGIES ASPIRIN. MEDICATIONS 1. Vancomycin. 2. Piperacillin/tazobactam. 3. Ultram. 4. Tegretol. 5. Klonopin. 6. Tylenol. SOCIAL HISTORY No alcohol use. No tobacco use. No illicit drugs. FAMILY HISTORY Noncontributory. REVIEW OF SYSTEMS CONSTITUTIONAL: Significant for fever and chills. HEENT: No visual blurring or diplopia. No difficulty swallowing. No soreness of the throat. No nasal bleeding or nasal discharge. NECK: No swelling or pain. CARDIOVASCULAR: No palpitation. No chest pain. RESPIRATORY: No cough or shortness of breath. GASTROINTESTINAL: No nausea, vomiting, abdominal pain or diarrhea. MUSCULOSKELETAL: Significant for pain in the right lower extremity. GENITOURINARY: No urgency, frequency or dysuria. ENDOCRINE: No polyuria or polydipsia. HEMATOPOIETIC: No easy bruising or bleeding. INTEGUMENTARY: Significant for redness of the right leg. NEUROLOGIC: No problems with coordination or dizziness. PSYCHIATRIC: No mood changes or confusion. PHYSICAL EXAMINATION GENERAL: He is a moderately obese male who is awake and alert and in no acute distress. VITAL SIGNS: Temperature 97.1, blood pressure 135/79, respirations 18, heart rate 68. HEENT: The head is atraumatic. Extraocular movements grossly intact, pupils reactive to light. No icterus. Oropharynx - no lesions. Moist oral mucosa. NECK: Supple. No adenopathy. LUNGS: Clear breath sounds. HEART: Regular, rate and rhythm. No murmurs, rubs or gallops. ABDOMEN: Bowel sounds present, soft, no tenderness. RECTAL: Not performed. EXTREMITIES: The right leg is swollen from the knee down to the ankle. There is a light area of redness which is confluent at the tibia. There are also scattered erythematous raised/flattened lesions at the distal area of the tibia circumferentially, and there is one larger raised blister-formed lesion at the posterior aspect of the right tibia. The tibia is mildly warm. The right leg is obviously swollen compared to the left. SKIN: The skin has no diffuse rash. NEUROLOGIC: Nonfocal. PSYCHIATRIC: Calm and cooperative. LABORATORY DATA WBC 7.5, platelets 145, creatinine 0.73, estimated GFR 118. IMPRESSION Right lower extremity cellulitis which is slow to heal. The patient with a presentation of chills along with features suggesting sepsis around the time of admission. RECOMMENDATIONS 1. Discontinue Vancomycin. 2. Discontinue piperacillin/tazobactam. 3. Begin high-dose Ancef. 4. Wrap the right leg with Jian bandage. 5. Follow the response of the cellulitis. If the cellulitis looks improved tomorrow, he can be converted to Keflex p.o. and treated as outpatient with Keflex for another 5-7 days. I anticipate that with using the Jian bandage it should allow further decrease in the swelling. Thank you for this consultation. The patient's progress will be monitored and if necessary further recommendations will be given. Davin Weinstein MD FD/BJF /2:41 PM /2:54 PM
[2016-07-22 16:00] VITALS: BP 127/80; PULSE 69; RESP 18; TEMP 97.6; O2SAT 97
[2016-07-22] MEDS: ceFAZolin 2 GM PREMIX 50 ML IV SCH ×2 (16:06→21:58)
[2016-07-22] MEDS ORDERED: PHARMACY ORDERED LAB ONE (17:45)
[2016-07-22 20:38] VITALS: BP 137/85; PULSE 73; RESP 20; TEMP 98.1; O2SAT 99
[2016-07-23 00:41] VITALS: BP 153/86; PULSE 74; RESP 20; TEMP 96.9; O2SAT 96
[2016-07-23 04:00] VITALS: BP 129/85; PULSE 66; RESP 20; TEMP 96; O2SAT 97
[2016-07-23] MEDS: carBAMazepine 200 MG TAB PO SCH ×2 (06:11→12:41)
[2016-07-23] MEDS: ceFAZolin 2 GM PREMIX 50 ML IV SCH ×2 (06:11→15:00)
[2016-07-23] MEDS: clonazePAM 1 MG TAB PO SCH ×2 (06:11→12:41)
[2016-07-23] MEDS: SODIUM CHLOR 0.9% 1000 ML INJ 1,000 ML IV SCH (06:13)
[2016-07-23 08:00] VITALS: BP 143/95; PULSE 67; RESP 16; TEMP 96.7; O2SAT 97
[2016-07-23] MEDS: SODIUM CHLORIDE 0.9% FLUSH 10 ML FLUSH IV FLUSH SCH (09:00)
[2016-07-23] MEDS: ENOXAPARIN SODIUM 40 MG/0.4 ML SYRINGE SQ SCH (10:37)
--- NOTE | 2016-07-23 11:59 | HHI.IDPN ---
Note Infectious Disease Note Patient is without complaints. No chills. The room is cold. No fever. Minimal r. leg pain. PAST MEDICAL HISTORY Seizure disorder. ALLERGIES ASPIRIN. Current Medications Medications (Trade) Dose Ordered Sig/Esteban Route PRN Reason Start Time Stop Time Status Last Admin Dose Admin Sodium Chloride (NS 1000 ml Inj) 1,000 ml @ 100 mls/hr Q10H IV 07/16/16 23:30 07/23/16 06:13 Acetaminophen (Tylenol) 650 mg Q4H PRN PO SEE LABEL COMMENTS 07/17/16 03:30 07/20/16 00:13 Carbamazepine (TEGretol) 200 mg BID@07,13 PO 07/17/16 13:00 07/23/16 06:11 Clonazepam (KlonoPIN) 2 mg TID@,, PO 07/17/16 13:00 07/23/16 06:11 Carbamazepine (TEGretol) 400 mg HS@2200 PO 07/17/16 22:00 07/22/16 22:00 Ondansetron HCl (Zofran Inj) 4 mg Q6H PRN IV nausea 07/17/16 10:00 Enoxaparin Sodium (Lovenox Inj) 40 mg Q24H SQ 07/17/16 11:00 07/23/16 10:37 Tramadol HCl (Ultram) 50 mg Q6H PRN PO HEADACHE 07/18/16 22:45 07/21/16 22:39 Sodium Chloride (NS Flush) See Protocol DAILY IV FLUSH 07/21/16 09:00 07/22/16 11:06 Sodium Chloride (NS Flush) See Protocol UNSCH PRN IV FLUSH SEE PROTOCOL TABLE 07/20/16 19:15 Heparin Sodium (Porcine) (Heparin Central Flush) See Protocol DAILY IV FLUSH 07/21/16 09:00 07/23/16 10:36 Heparin Sodium (Porcine) (Heparin Central Flush) See Protocol UNSCH PRN IV FLUSH SEE PROTOCOL TABLE 07/20/16 19:15 Sodium Chloride UNSCH PRN IV FLUSH SEE PROTOCOL TABLE 07/20/16 19:15 Cefazolin Sodium/ Dextrose (Ancef 2 Gm Premix) 50 ml @ 100 mls/hr Q8H IV 07/22/16 15:00 07/23/16 06:11 SOCIAL HISTORY No alcohol use. No tobacco use. No illicit drugs. PHYSICAL EXAMINATION GENERAL: No acute distress. HEENT: No icterus. Oropharynx - no lesions. Moist oral mucosa. LUNGS: Clear breath sounds. HEART: Regular, rate and rhythm. No murmurs, rubs or gallops. EXTREMITIES: The right leg is less swollen. There is a light area of redness which is confluent at the tibia. It is fading. There are also scattered erythematous raised/flattened lesions at the distal area of the tibia and there is one larger raised blister-formed lesion at the posterior aspect of the right tibia which is dry. The right leg swelling is less. SKIN: The skin has no diffuse rash. NEUROLOGIC: Nonfocal. PSYCHIATRIC: Calm and cooperative. IMPRESSION Right lower extremity cellulitis which is slow to heal. Appears stable and slowly improving. RECOMMENDATIONS 1. Stop Ancef. 2. may discharge on PO keflex 500mg qid x 7 days. 3. Follow up with primary doctor. 4. May continue to use nigel wrap. 5. Use antifungal cream between toes. Patient states has has some at home. Discussed with RN. Davin Weinstein MD Jul 23, 2016 11:59
[2016-07-23 12:00] VITALS: BP 148/90; PULSE 68; RESP 20; TEMP 97; O2SAT 98
[2016-07-23] MEDS ORDERED: CEPH-460 PO (14:28)
[2016-07-23] MEDS ORDERED: ULTR50TA5 PO (14:28)
--- NOTE | 2016-07-23 14:34 | HHI.DCPOC ---
Discharge Care Plan Diagnosis: (1) Cellulitis of right leg (2) Lymphangitis (3) Seizure disorder Goals to Promote Your Health * To prevent worsening of your condition and complications * To maintain your health at the optimal level Directions to Meet Your Goals Take your medications as prescribed Follow your dietary instruction Follow activity as directed Keep your appointments as scheduled Take your immunizations and boosters as scheduled If your symptoms worsen call your PCP, if no PCP go to Urgent Care Center or Emergency Room Smoking is Dangerous to Your Health. Avoid second hand smoke Call the 24-hour hour crisis hotline for domestic abuse at Brayan Lamb DO Jul 23, 2016 14:34
--- NOTE | 2016-07-23 14:34 | HHI.DS ---
Discharge Summary Admission Date Jul 16, 2016 at 23:17 Discharge Date: Jul 23, 2016 Admitting Diagnosis right leg cellulitis with lymphangitis (1) Cellulitis of right leg Diagnosis: Principal (2) Lymphangitis Diagnosis: Principal (3) Seizure disorder Diagnosis: Secondary Consultants Dr. Davin Yusuf, Infectious Disease Brief History Mr. Landry is a 40 y/o male with seizure disorder who presented to the ED at [facility] with complaints of fevers and RLE erythema that began on the evening on 07/14. The patient reports that he has had subjective fever and chills and then noticed an area of redness along the right lower extremity which has spread to the medial aspect of the right groin. There is associated tenderness at the site. The patient denies having any associated cough, congestion, sore throat, vomiting, or diarrhea. He reports that through the week and he had have a diminished appetite. He denies having any known injury/trauma to the RLE. The patient denies any headache, neck pain, chest pain, shortness of breath, abdominal pain, vomiting, diarrhea, urinary symptoms, or neurologic symptoms. LE US was negative for DVT. Pt was given Vancomycin and Zosyn in the ED for cellulitis. CBC/BMP: 07/19/16 0710 07/21/16 0551 Significant Findings Laboratory Tests Test 07/21/16 17:48 Vancomycin Level Trough 14.2 MCG/ML (5.0-10.0) PE at Discharge General: NAD, AAOx3 Skin: Less erythema from the right ankle up the anterior right calf. No streaking to the medial right thigh noted, no lymphadenopathy noted. Cardiac: Regular. Chest: CTA bilaterally. Abd: +BS, soft, non-tender, nondistended. Ext: RLE edema and erythema Hospital Course (1) Cellulitis of right leg Status: Acute Plan: - Pt admitted with RLE cellulitis with noted lymphangitis/streaking x 4 days with subjective fevers and chills. - This is improving - LE US was negative - Vancomycin and Zosyn (07/16 - 07/22/16) - Ancef 07/22-07/23 - comgmt with ID, Dr. Yusuf - discharge to home on PO keflex 500mg QID x 7d - Pt has been afebrile since admission. - CRP was 17.00 at admission. - Blood cultures --> NO growth at 5d - d/c to home - see orders - f/u with PCP, Dr. Harrison in 1 week (2) Lymphangitis Status: Acute Plan: - See above. (3) Seizure disorder Status: Chronic Plan: - Pt takes Tegretol 200mg @ 0700 and 1300 and 400mg at 2200. - Pts Tegretol level was elevated at admission to 13.3 and the dose was changed to 200mg TID but the pt insisted that his dose be changed back he states that the last time his dose was changed he had a break through seizures which was in 1997. - Pt is also on Klonopin 2mg po TID @ 0700, 1300, 2200 which was resumed. Pt Condition on Discharge: Stable Discharge Disposition: Discharge Home Discharge Instructions DIET: Follow Instructions for: As Tolerated, No Restrictions Activities you can perform: Regular-No Restrictions Follow up Referrals: PCP Follow-up - [address] Harrison New Medications: Cephalexin (Keflex) 500 Mg Cap 500 MG PO Q6HR Infection #30 Ref 0 CAP Tramadol (Ultram) 50 Mg Tab 50 MG PO Q6H PRN pain #7 Ref 0 TAB Continued Medications: Carbamazepine (Tegretol) 200 Mg Tab 200 MG PO BID@0700,1300 #60 Ref 0 TAB Carbamazepine (Tegretol) 200 Mg Tab 400 MG PO HS@2200 #60 Ref 0 TAB Clonazepam (Klonopin) 2 Mg Tab 2 MG PO TID@0700,1300,2200 #90 Ref 0 TAB Brayan Lamb DO Jul 23, 2016 14:33
== END 2016-07-23 16:38 | disposition home or self-care (01) | DRG 872 ==
LOC: NEPE 19:58 → NEDA 23:17 → HOCB 07-17 01:46
PROVIDERS: ADMIT Hospitalist; ATTEND Hospitalist
DX: A41.9 Sepsis, unspecified organism (principal); L03.115 Cellulitis of right lower limb; G40.909 Epilepsy, unspecified, not intractable, without status epilepticus; R00.0 Tachycardia, unspecified
CPT/HCPCS: 36569; 71010; 73590; 76937; 80048; 80053; 80156; 80202; 82565; 83036; 83605; 83735; 85007; 85025; 85027; 85610; 85730; 86140; 87040; 90686; 93005; 93971; 96365; 96367; J0690; J1642; J1650; J2543; J3370; J7030; J7040; J7050; Q2038

== ENCOUNTER 2017-02-22 21:06 | Emergency (ER) | payer OTHER ==
[~2017-02-22 21:06] MED LIST changes: -CARB200 PO; +CEPH-460 PO; -PRED20 PO; +TEGR200T PO; +TRAM50 PO
[2017-02-22 21:10] VITALS: BP 147/79; PULSE 68; RESP 16; TEMP 98.3; O2SAT 96
[2017-02-22] MEDS ORDERED: NAPHAZOLINE HCL 0.012% OPHT SOLN 15 ML BOTTLE RIGHT EYE ONE (21:45)
[2017-02-22] MEDS ORDERED: diphenhydrAMINE HCL 50 MG CAP PO ONE (21:45)
[2017-02-22] MEDS ORDERED: ERYTHROMYCIN 0.5% OPTH OINT 3.5 GM TUBO RIGHT EYE ONE (21:45)
--- NOTE | 2017-02-22 21:48 | PD ---
HPI Chief Complaint: Eye Problems/Injury Time Seen by Provider: 21:26 Travel History International Travel<30 days: No Contact w/Intl Traveler<30days: No Traveled to known affect area: No History of Present Illness HPI 41-year-old white male presents to emergency Department with complaints of right eyelid and I swelling over last day. He does not recall any trauma. He states that his right eye became irritated and he has been rubbing it. He has had some clear tearing. He denies any matting, diplopia, photophobia or trauma. No foreign body sensation. Up-to-date with immunizations. No glasses or contacts PFSH Past Medical History Narrative Medical Seizure disorder Arthritis: No Cancer: No Cardiovascular Problems: No Diabetes: No Diminished Hearing: No GERD: No Kidney Stones: No Neurologic: Yes Psychiatric: No Reproductive: No Respiratory: No Renal Failure: No Seizures: Yes Shingles: Yes Sickle Cell Disease: No Thyroid Disease: No Tetanus Vaccination: < 5 Years ?: Not Past Surgical History Surgical History: No Previous Surgery Other Surgery: No Social History Alcohol Use: No Tobacco Use: No Substance Use: No Allergies-Medications (Allergen,Severity, Reaction): Coded Allergies: aspirin (Unverified Allergy, Severe, 11/21/16) Reported Meds & Prescriptions Reported Meds & Active Scripts Active Keflex (Cephalexin) 500 Mg Cap 500 Mg PO Q6HR Ultram (Tramadol HCl) 50 Mg Tab 50 Mg PO Q6H PRN Reported Tegretol (Carbamazepine) 200 Mg Tab 400 Mg PO HS@2200 Klonopin (Clonazepam) 2 Mg Tab 2 Mg PO TID@0700,1300,2200 Tegretol (Carbamazepine) 200 Mg Tab 200 Mg PO BID@0700,1300 Review of Systems General / Constitutional: No: Fever Eyes: Positive: Redness, Pain, Tearing, No: Diploplia, Blurred Vision, Photophobia, Drainage, Foreign Body Sensation, Visual changes HENT: No: Headaches Cardiovascular: No: Chest Pain or Discomfort Respiratory: No: Shortness of Breath Gastrointestinal: No: Abdominal Pain Genitourinary: No: Dysuria Musculoskeletal: No: Pain Skin: No Rash Neurologic: No: Weakness Psychiatric: No: Depression Endocrine: No: Polydipsia Hematologic/Lymphatic: No: Easy Bruising Physical Exam Narrative GENERAL: This is a well-nourished, well-developed patient, in no apparent distress. SKIN: No rashes, ecchymoses or lesions. Warm and dry. HEAD: Atraumatic. Normocephalic. EYES: PERRL, EOMI, no discharge or injection in the left eye. No scleral icterus. The right upper eyelid is swollen. The right lower lid is swollen. There is a small stye noted at the temporal aspect of the lower lid. Patient has chemosis of the bulbar sclera. The cornea is clear. Alcaine is instilled in the right eye. The lids are flipped and no foreign body seen. Fluorescein stain is negative. EARS: Clear NOSE: Nasal turbinates appear normal. THROAT: Mucosa pink and moist. Airway patent. NECK: Trachea midline. supple, moves head freely. LUNGS: Clear to auscultation. CV: Regular in rhythm. ABDOMEN: Soft nontender. EXT: No clubbing cyanosis or edema. Data Data Last Documented VS Vital Signs Date Time Temp Pulse Resp B/P (MAP) Pulse Ox O2 Delivery O2 Flow Rate FiO2 02/22/17 21:10 98.3 68 16 147/79 (101) 96 Room Air Orders Orders Diphenhydramine (Benadryl) (02/22/17 21:45) Naphazoline 0.012% Opth Soln (Clear Eyes (02/22/17 21:45) Erythromycin 0.5% Opth Oint (Ilotycin 0. (02/22/17 21:45) Ed Discharge Order (02/22/17 21:42) MDM Medical Decision Making Medical Screen Exam Complete: Yes Emergency Medical Condition: Yes Medical Record Reviewed: Yes Differential Diagnosis MDM: High Differential diagnoses: Acute conjunctivitis (bacterial, viral, allergic, traumatic), glaucoma, iritis, traumatic globe injury, foreign body, corneal abrasion, corneal ulcer, chemosis Narrative Course Patient has a stye to the right lower eyelid and chemosis Patient is given 50 mg of Benadryl by mouth, erythromycin ointment and Naphcon eyedrops Diagnosis Primary Impression: Hordeolum externum (stye) Qualified Codes: H00.012 - Hordeolum externum right lower eyelid Additional Impression: Chemosis of right conjunctiva Referrals: Millicent Yadav MD 2 days Additional Instructions: Rest. Wash eyelashes with baby shampoo 3 times daily. Warm compresses. One ribbon of erythromycin ointment to the right eye 4 times daily. One drop of Naphcon to the right eye for times daily.. Followup with an eye doctor in 2 days. Follow-up with a medical doctor 2 days. Return to the ER if any problems. Med/Other Pt SpecificInfo: Prescription(s) given Disposition: 01 DISCHARGE HOME Condition: Stable Sky Rodriguez Feb 22, 2017 21:48
== END 2017-02-22 22:27 | disposition home or self-care (01) ==
LOC: NEPK 21:06
DX: H00.012 Hordeolum externum right lower eyelid (principal); H11.421 Conjunctival edema, right eye; G40.909 Epilepsy, unspecified, not intractable, without status epilepticus; Z79.899 Other long term (current) drug therapy; Z88.6 Allergy status to analgesic agent
CPT/HCPCS: 99283; Q0163